=== PATIENT | male | born 1970 | race African-American/Black ===

== ENCOUNTER 2020-03-21 21:46 | Emergency (ER) | payer MEDICAID ==
[~2020-03-21] VITALS: Ht 180.3 cm; Wt 72.0 kg
[2020-03-21 21:49] VITALS: BP 137/93
[2020-03-21] MEDS ORDERED: ACETAMINOPHEN 325MG TABLET PO ONE (23:15)
== END 2020-03-22 00:57 | disposition home or self-care (01) ==
LOC: ER 21:46
DX: K64.4 Residual hemorrhoidal skin tags (principal); Z98.890 Other specified postprocedural states
CPT/HCPCS: 99282

== ENCOUNTER 2020-03-29 01:53 | Emergency (ER) | payer MEDICAID ==
[~2020-03-29] VITALS: Ht 182.9 cm; Wt 73.0 kg
[2020-03-29 02:04] VITALS: BP 121/66
== END 2020-03-29 02:23 | disposition home or self-care (01) ==
LOC: ER 01:53
DX: K64.4 Residual hemorrhoidal skin tags (principal)
CPT/HCPCS: 99282